=== PATIENT | female | born 1990 | race Caucasian/White ===

== ENCOUNTER 2021-09-14 10:26 | Outpatient (CLI) | payer OTHER | END 2021-09-14 10:36 | disposition home or self-care (01) | LOC: RAD 10:26 | PROVIDERS: ATTEND Orthopaedic Surgery | DX: M25.561 Pain in right knee (principal) ==

== ENCOUNTER 2022-10-07 10:52 | Outpatient (CLI) | payer OTHER | END 2022-10-07 11:01 | disposition home or self-care (01) | LOC: TOM 10:52 | DX: K58.8 Other irritable bowel syndrome (principal); K29.70 Gastritis, unspecified, without bleeding ==

== ENCOUNTER 2023-10-24 10:17 | Outpatient (CLI) | payer OTHER | END 2023-10-24 10:28 | disposition home or self-care (01) | LOC: RAD 10:17 | PROVIDERS: ATTEND Chiropractor | DX: M99.03 Segmental and somatic dysfunction of lumbar region (principal); M99.04 Segmental and somatic dysfunction of sacral region; M99.02 Segmental and somatic dysfunction of thoracic region; M99.01 Segmental and somatic dysfunction of cervical region; M54.50 Low back pain, unspecified; M54.6 Pain in thoracic spine; M54.2 Cervicalgia ==

== ENCOUNTER 2024-09-10 08:55 | Outpatient (CLI) | payer OTHER ==
[2024-09-10 10:08] LABS: BASO % 0.6 % (0.1-1.2); EOS # 0.02 (0.04-0.54); EOS % 0.3 % (0.7-7.0); LYMPH # 1.61 (1.18-3.74); LYMPH % 24.3 % (19.3-53.1); MEAN PLATELET VOLUME 10.20 fl (9.4-12.4); MONO # 0.33 (0.24-0.82); MONO % 5.0 % (4.7-12.5); NEUT # 4.61 (1.56-6.13); NEUT % 69.6 % (34.0-71.1); RED CELL DISTRIBUTION WIDTH 12.2 % (11.6-14.4)
[2024-09-10 10:12] LABS: URINE APPEARANCE Clear; URINE BILIRRUBIN Negative (NEGATIVE); URINE BLOOD Negative; URINE COLOR Yellow; URINE GLUCOSE Negative (NEGATIVE); URINE KETONE Trace (NEGATIVE); URINE LEUKOCYTE Trace; URINE NITRATE Negative; URINE PROTEIN Negative (NEGATIVE); URINE UROBILINOGEN 0.2 E.U./dl
[2024-09-10 10:14] LABS: URINE BACTERIA 367.1 uL (0.0-1933); URINE EPITHELIAL CELLS 23.3 uL (0.0-38.8); URINE RBC 4.2 uL (0.0-20.8); URINE WBC 27.2 uL (0.0-23.2)
[2024-09-10 10:20] LABS: URINE CAST 0.29 uL (0.0-1.40)
[2024-09-10 10:43] LABS: ALT/SGPT 24.0 U/L (12-78); AST/SGOT 17.0 U/L (15-37); BILIRUBIN TOTAL 0.59 mg/dL (0.3-1.2); BUN CREA RATIO 9.0 (7.0-25.0); CHOL HDL RATIO 4.3 (0-5.0); CREATININE SERUM 0.75 mg/dL (0.55-1.02); GFR 87.94; GLOBULINA 3.6 G/DL (2.4-3.5); GLUCOSE FASTING 80.0 mg/dL (65-100); HDL 43.0 mg/dl (40-60); LDL 114.0 mg/dl (0-130); OSMOLALITY SERUM 278.0 MOSM/KG (275-295); T4 FREE 1.06 NG/ML (0.76-1.46); TSH 0.86 uIU/mL (0.358-3.74); VLDL 30.0 (0-39)
[2024-09-13 05:07] LABS: ESTRADIOL SERUM 87.1 pg/mL (.); LEUTEINIZING HORMONE 12.6 mIU/mL (.); PROLACTIN 16.9 ng/mL (4.8-33.4); hav igm Negative (Negative); hep b c Negative (Negative); hep b s ag Negative (Negative)
== END 2024-09-10 08:59 | disposition home or self-care (01) ==
LOC: LAB 08:55
DX: N93.8 Other specified abnormal uterine and vaginal bleeding (principal)